=== PATIENT | male | born 1955 | race Two or more races ===

== ENCOUNTER 2016-07-04 10:19 | Emergency (ER) | payer OTHER ==
[2016-07-04 10:50] VITALS: BP 128/67; PULSE 56; RESP 16; O2SAT 97
[2016-07-04 11:04] VITALS: TEMP 98.1
[2016-07-04 11:22] LABS: COLOR YELLOW; LEUKOCYTE ESTERASE,URINE NEGATIVE (NEGATIVE); NITRITE,URINE NEGATIVE (NEGATIVE)
--- NOTE | 2016-07-04 11:28 | UCPHY ---
H & P Time Seen by Provider: 07/04/16 11:05 Patient Type: New HPI/ROS: CHIEF COMPLAINT: Sore throat, back pain HISTORY OF PRESENT ILLNESS: 61-year-old male states that he developed a sore throat last night. I discomfort on the right side of his throat when he woke this morning. He gargle with salt water and felt better. He has had no fever. No upper respiratory infection symptoms, no cough, no nausea, no vomiting, no diarrhea, no ear pain. Patient's daughter was recently diagnosed with a strep throat. Of note he has also been complaining of aching intermittent achy discomfort in the right flank. His mother has a history of having a renal carcinoma the patient is worried that this may be the 1st presentation. REVIEW OF SYSTEMS: Aside from elements discussed in the HPI, a comprehensive 10-point review of systems was reviewed and is negative. PAST MEDICAL HISTORY: Denies. SOCIAL HISTORY: Nonsmoker. Occasional alcohol. VITAL SIGNS: see nurse's notes. GENERAL: Well-developed, well-nourished, in no acute distress. HEENT: Atraumatic Eyes: PERRL, EOMI, no conjunctival injection. Ears: TM clear bilaterally. Nose: No discharge. Mouth: moist mucous membranes. Pharynx: Mild erythema along the right posterior pharynx, no tonsillar enlargement all, no exudates, no swelling, no abscess. Uvula is midline. NECK: Supple, no adenopathy, no meningismus, no tenderness. Negative Kernig's and Brudzinski's. LUNGS: Clear to auscultation bilaterally, no wheezes, rhonchi or rales. CARDIAC: Regular rate and rhythm, no rubs, murmurs or gallops. ABDOMEN: Soft, nontender, bowel sounds normal. BACK: No CVA tenderness. Patient indicates the area of discomfort is in the high right flank, no erythema, tenderness, warmth, or skin changes. EXTREMITIES: Normal, no edema, FROM. NEURO: Alert and oriented, grossly nonfocal. SKIN: Warm and dry, no rash. PSYCHIATRIC: Normal mentation, no agitation. Smoking Status: Former smoker Constitutional: Initial Vital Signs Temperature (C) 36.7 C 07/04/16 10:46 Heart Rate 56 L 07/04/16 10:46 Respiratory Rate 16 07/04/16 10:46 Blood Pressure 128/67 H 07/04/16 10:46 O2 Sat (%) 97 07/04/16 10:46 O2 Delivery Mode Room Air Allergies/Adverse Reactions: No Known Allergies Allergy (Unverified 07/04/16 10:50) Home Medications: Medication Instructions Recorded Atenolol 07/04/16 THYROID 07/04/16 Medical Decision Making ED Course/Re-evaluation: Strep screen is negative. Urinalysis is normal. Patient was advised regarding [id number] med treatment for his sore throat. He will follow up with his primary care physician with respect to his complaints of flank discomfort. Differential Diagnosis: Differential diagnosis for the patient's sore throat was considered including but not limited to viral pharyngitis, bacterial pharyngitis, tonsillitis, tonsillar abscess, peritonsillar abscess, foreign body, epiglottitis, bacterial tracheitis. Differential for the patient's flank pain was considered including but not limited to kidney stone, urinary tract infection, renal cyst, renal carcinoma, musculoskeletal pain. - Data Points Laboratory Results: 07/04/16 07/04/16 07/04/16 Unknown 11:15 10:53 Urine Color YELLOW Urine Appearance CLEAR Urine pH 7.0 (5.0-7.5) Ur Specific [place] 1.010 (1.002-1.030) Urine Protein NEGATIVE (NEGATIVE) Urine Ketones NEGATIVE (NEGATIVE) Urine Blood NEGATIVE (NEGATIVE) Urine Nitrate NEGATIVE (NEGATIVE) Urine Bilirubin NEGATIVE (NEGATIVE) Urine Urobilinogen 0.2 EU EU (0.2-1.0) Ur Leukocyte Esterase NEGATIVE (NEGATIVE) Ur Culture Indicated? NOT INDICATED (NI) Urine Glucose NEGATIVE (NEGATIVE) Group A Strep Screen NEGATIVE (NEGATIVE) Group A Strep DNA Pending Departure - Departure Disposition: Home, Routine, Self-Care Clinical Impression: Pharyngitis Qualifiers: Pharyngitis/tonsillitis etiology: unspecified etiology Qualified Code(s): J02.9 - Acute pharyngitis, unspecified Condition: Good Instructions: Pharyngitis (ED) Additional Instructions: Your rapid strep screen is negative. If your strep DNA test returns positive, you will be contacted. For your sore throat, I suggest ibuprofen 400-600 mg every 6-8 hours to help with pain and swelling. Salt water gargles and throat lozengers will also be helpful. Consider obtaining a zinc cold remedy such as Zicam. If you develop nasal congestion, I suggest Flonase which is available over the counter. For a runny nose, I suggest an antihistamine. Claritin or Penny are nonsedating antihistamines. Please follow up with your primary care physician if you're not improving as expected. Referrals: GIULIANO SNIDER [Other] - As per Instructions - PQRS PQRS Measurement: Not applicable
== END 2016-07-04 12:11 | disposition home or self-care (01) ==
LOC: CED 10:19
DX: J02.9 Acute pharyngitis, unspecified (principal)
CPT/HCPCS: 81003-PO; 87880-PO; 99204-PO; G0463-PO

== ENCOUNTER → 2018-09-07 | Outpatient (CLI) | payer OTHER | LOC: FCP 13:29 ==